=== PATIENT | female | born 1970 | race Two or more races ===

== ENCOUNTER 2021-05-10 18:40 | Emergency (ER) | payer MEDICAID ==
[~2021-05-10] VITALS: Ht 162.6 cm; Wt 90.7 kg
[2021-05-10] MEDS ORDERED: IV NS 0.9% 1,000 ML BAG IV ONE (19:00)
--- NOTE | 2021-05-10 19:06 | NUR ---
bibdaughter, c/o left middle finger redness. On room air, kept comfortable will continue to monitor accordingly.
[2021-05-10 19:10] LABS: BASOPHILS % (AUTO) 0.4 % (0.0-2.0); EOSINOPHILS % (AUTO) 0.4 % (0.0-6.0); HEMATOCRIT 40 % (33-45); HEMOGLOBIN 13.1 g/dL (11.5-14.8); LYMPHOCYTES # (AUTO) 2.1 K/uL (0.8-4.8); LYMPHOCYTES % (AUTO) 22.4 % (20.0-44.0); MEAN CORPUSCULAR HGB CONC 33 g/dl (31.0-36.0); MEAN CORPUSCULAR VOLUME 96 fL (82-100); MONOCYTES # (AUTO) 0.5 K/uL (0.1-1.30); MONOCYTES % (AUTO) 5.8 % (2.0-12.0); NEUTROPHILS # (AUTO) 6.7 K/uL (1.8-8.9); PLATELET COUNT (AUTO) 318 K/uL (150-450); RED BLOOD CELL COUNT(AUTO) 4.13 MIL/uL (4.0-5.2); WHITE BLOOD COUNT (AUTO) 9.5 K/uL (4.3-11.0)
--- NOTE | 2021-05-10 19:14 | NUR ---
RADIOLOGY AT BEDSIDE
--- NOTE | 2021-05-10 19:14 | NUR ---
EMT AT BEDSIDE
[2021-05-10 19:17] LABS: CALCIUM, SERUM 8.6 mg/dL (8.5-10.1); CARBON DIOXIDE 26 mmol/L (21-32); CHLORIDE 107 mmol/L (98-107); CREATININE 0.8 mg/dL (0.6-1.3); GLUCOSE 94 mg/dL (74-106); POTASSIUM 3.4 mmol/L (3.5-5.1); SODIUM SERUM 142 mmol/L (136-145); UREA NITROGEN, BLOOD 18 mg/dL (7-18)
[2021-05-10 19:19] LABS: BILIRUBIN,URINE Negative (NEGATIVE); COLOR,URINE YELLOW (YELLOW); LEUKOCYTE ESTERASE ,URINE Trace (NEGATIVE); NITRITE, URINE Negative (NEGATIVE); PH,URINE 5.5 (5.0-8.0); PROTEIN,URINE Negative (NEGATIVE); UGLUCOSE Negative (NEGATIVE); UROBILINOGEN,URINE 0.2 EU/dL (0.2)
[2021-05-10] MEDS ORDERED: VANCOMYCIN 1 GM VIAL ONE (19:28)
[2021-05-10] MEDS ORDERED: PIPERACILLIN /TAZOBACTAM 3.375 G VIAL IV ONE (19:28)
[2021-05-10 19:29] LABS: ALANINE AMINOTRANSFERASE 36 U/L (12-78); ALBUMIN 3.6 g/dL (3.4-5.0); ALKALINE PHOSPHATASE 107 U/L (46-116); ASPARTATE AMINOTRANSFERASE 21 U/L (15-37); BILIRUBIN,DIRECT 0.1 mg/dL (0.0-0.2); BILIRUBIN,TOTAL 0.2 mg/dL (0.2-1.0); TOTAL PROTEIN, SERUM 7.6 g/dL (6.4-8.2)
[2021-05-10 19:29] LABS: BACTERIA,URINE Few /HPF (None Seen); SQUAMOUS EPITHELIAL CELL,UR Few /HPF (None Seen)
[2021-05-10] MEDS ORDERED: PIPERACILLIN /TAZOBACTAM 3.375 G in IV D5W 50 ML IV ONE (19:30)
[2021-05-10] MEDS ORDERED: VANCOMYCIN 1 GM in IV D5W 250 ML IV ONE (19:30)
--- NOTE | 2021-05-10 19:37 | NUR ---
PAGED DR CODY ALLEN AT [phone]
--- NOTE | 2021-05-10 21:01 | NUR ---
Patient does not wish to proceed with medical care recommended by Dr. Santamaria . Patient given information related to possible complications, up to and including , which could occur as a result of leaving the hospital at this time. Patient verbalizes understanding of risks involved due to leaving against medical advice. Patient has signed AMA form.
[2021-05-10 21:02] VITALS: BP 131/72
== END 2021-05-10 21:02 | disposition left against medical advice (07) ==
LOC: ER 18:43
DX: M65.842 Other synovitis and tenosynovitis, left hand (principal); Z20.822 Contact with and (suspected) exposure to COVID-19; Z53.29 Procedure and treatment not carried out because of patient's decision for other reasons; M21.932 Unspecified acquired deformity of left forearm
CPT/HCPCS: 36415; 71045; 73130; 80048; 80076; 81001; 84145; 84484; 85025; 85652; 85730; 87040 ×2; 87086; 87426; 93005; 96365; 96366; 96368; 99285; C9803; J2543; J3370; J7030; J7060